=== PATIENT | female | born 1975 | race Caucasian/White ===

== ENCOUNTER → 2022-07-08 12:26 | Outpatient (CLI) | payer BC, SELFPAY ==
[2022-07-08 13:59] LABS: Influenza A - CEPHEID Flu A NEGATIVE (NEGATIVE); Influenza B - CEPHEID Flu B NEGATIVE (NEGATIVE); Respiratory Syncytial Virus Negative (Negative)
[2022-07-08 14:09] LABS: COVID-19 CEPHEID 4-PLEX PCR Negative (Negative)
== END ==
PROVIDERS: Visit Provider Registered Nurse
DX: R05.1 Acute cough (principal)
CPT/HCPCS: 0241U